=== PATIENT | female | born 1980 | race Asian ===

== ENCOUNTER 2016-04-25 07:40 | Outpatient (CLI) | payer OTHER ==
[2016-04-25 08:40] LABS: PLATELET COUNT 255 K/uL (152-353)
== END 2016-04-25 21:33 | disposition home or self-care (01) ==
LOC: LABW 07:40
PROVIDERS: Family Medicine
DX: R61 Generalized hyperhidrosis (principal); E78.4 Other hyperlipidemia; E55.9 Vitamin D deficiency, unspecified; E53.8 Deficiency of other specified B group vitamins; R53.83 Other fatigue; M54.5 Low back pain; M54.6 Pain in thoracic spine
CPT/HCPCS: 36415; 80061; 82306; 82607; 84443; 85027

== ENCOUNTER 2016-05-16 10:39 | Outpatient (CLI) | payer OTHER ==
[2016-05-16 10:58] LABS: PLATELET COUNT 242 K/uL (152-353)
[2016-05-16 11:24] LABS: POTASSIUM 3.6 mmol/L (3.6-5.2); SODIUM 135 mmol/L (136-145)
== END 2016-05-16 19:22 | disposition home or self-care (01) ==
LOC: LABW 10:39
PROVIDERS: Physician Assistant
DX: N39.0 Urinary tract infection, site not specified (principal); R63.5 Abnormal weight gain; R68.89 Other general symptoms and signs; R53.83 Other fatigue
CPT/HCPCS: 36415; 80053; 80061; 82607; 83036; 83735; 84439; 84443; 85027

== ENCOUNTER 2016-05-16 18:09 | Emergency (ER) | payer OTHER ==
[~2016-05-16] VITALS: Ht 167.6 cm; Wt 105.7 kg
[2016-05-16 19:17] LABS: PLATELET COUNT 270 K/uL (152-353)
[2016-05-16 19:19] LABS: POTASSIUM 3.7 mmol/L (3.6-5.2)
[2016-05-16 21:00] VITALS: BP 150/76; TEMP 98.9
== END 2016-05-16 21:00 | disposition home or self-care (01) ==
LOC: ED 18:09
PROVIDERS: Specialist
DX: R31.9 Hematuria, unspecified (principal)
CPT/HCPCS: 36415; 80048; 80053; 80061; 82607; 83036; 83735; 84439; 84443; 85027; 96361; 96374; 96375; 99284; J1885; J2550

== ENCOUNTER 2016-08-04 17:38 | Emergency (ER) | payer OTHER ==
[~2016-08-04] VITALS: Ht 167.6 cm; Wt 104.3 kg
[2016-08-04 18:41] LABS: POTASSIUM 3.6 mmol/L (3.6-5.2)
[2016-08-04 19:02] VITALS: BP 153/93; TEMP 98.5
== END 2016-08-04 19:15 | disposition home or self-care (01) ==
LOC: ED 17:38
DX: F15.93 Other stimulant use, unspecified with withdrawal (principal); T50.5X5A Adverse effect of appetite depressants, initial encounter
CPT/HCPCS: 36415; 80048; 99282

== ENCOUNTER 2016-09-06 10:17 | Emergency (ER) | payer OTHER ==
[~2016-09-06] VITALS: Ht 167.6 cm; Wt 104.8 kg
[2016-09-06 11:40] VITALS: BP 142/82; TEMP 98.3
== END 2016-09-06 11:45 | disposition home or self-care (01) ==
LOC: ED 10:17
DX: S39.012A Strain of muscle, fascia and tendon of lower back, initial encounter (principal); S29.012A Strain of muscle and tendon of back wall of thorax, initial encounter; X58.XXXA Exposure to other specified factors, initial encounter; Y93.F2 Activity, caregiving, lifting; Y92.128 Other place in nursing home as the place of occurrence of the external cause; Y99.0 Civilian activity done for income or pay
CPT/HCPCS: 96372; 99283; J1885

== ENCOUNTER 2017-07-14 12:02 | Outpatient (CLI) | payer OTHER | END 2017-07-14 22:50 | disposition home or self-care (01) | LOC: LAB 12:02 → US 12:02 → LAB 22:50 | DX: R10.2 Pelvic and perineal pain (principal) | CPT/HCPCS: 87077; 87086; 87088; 87185 ==

== ENCOUNTER 2018-11-18 16:22 | Emergency (ER) | payer OTHER ==
[~2018-11-18] VITALS: Ht 167.6 cm; Wt 101.2 kg
[2018-11-18 18:14] VITALS: BP 153/98; TEMP 99
== END 2018-11-18 18:14 | disposition home or self-care (01) ==
LOC: ED 16:22
DX: S61.551A Open bite of right wrist, initial encounter (principal); S51.851A Open bite of right forearm, initial encounter; W54.0XXA Bitten by dog, initial encounter
CPT/HCPCS: 90471; 90715; 96372; 99283; J0696

== ENCOUNTER 2019-04-20 09:10 | Outpatient (CLI) | payer OTHER | END 2019-04-20 19:24 | disposition home or self-care (01) | LOC: RESP 09:10 | DX: N85.2 Hypertrophy of uterus (principal); G56.01 Carpal tunnel syndrome, right upper limb; G56.21 Lesion of ulnar nerve, right upper limb | CPT/HCPCS: 95885; 95909 ==

== ENCOUNTER 2019-07-06 11:02 | Outpatient (CLI) | payer OTHER ==
[2019-07-06 11:20] LABS: PLATELET COUNT 216 K/uL (152-353)
== END 2019-07-06 22:26 | disposition home or self-care (01) ==
LOC: LAB 11:02
PROVIDERS: Family Medicine
DX: Z20.828 Contact with and (suspected) exposure to other viral communicable diseases (principal)
CPT/HCPCS: 36415; 85027

== ENCOUNTER 2019-10-20 08:45 | Emergency (ER) | payer OTHER ==
[~2019-10-20] VITALS: Ht 167.6 cm; Wt 102.1 kg
[2019-10-20 09:08] VITALS: TEMP 98.8
[2019-10-20 10:06] LABS: PLATELET COUNT 252 K/uL (152-353)
[2019-10-20 10:15] LABS: POTASSIUM 3.9 mmol/L (3.6-5.2); SODIUM 140 mmol/L (136-145)
[2019-10-20 12:40] VITALS: BP 143/86
== END 2019-10-20 12:40 | disposition home or self-care (01) ==
LOC: ED 08:45
PROVIDERS: Emergency Medicine
DX: I49.8 Other specified cardiac arrhythmias (principal); R07.89 Other chest pain; Z20.828 Contact with and (suspected) exposure to other viral communicable diseases
CPT/HCPCS: 80053; 82550; 82553; 83605; 84484; 85027; 85379; 87040; 87502; 87635; 87651; 93005; 99284; G2023; U00003

== ENCOUNTER 2020-04-02 13:47 | Emergency (ER) | payer OTHER ==
[~2020-04-02] VITALS: Ht 167.6 cm; Wt 105.7 kg
[2020-04-02 13:56] VITALS: TEMP 97.8
[2020-04-02 14:50] LABS: PLATELET COUNT 215 K/uL (152-353)
[2020-04-02 14:53] LABS: POTASSIUM 3.9 mmol/L (3.6-5.2)
[2020-04-02 15:46] VITALS: BP 128/72
== END 2020-04-02 15:47 | disposition home or self-care (01) ==
LOC: ED 13:47
PROVIDERS: Hospitalist
DX: J06.9 Acute upper respiratory infection, unspecified (principal); Z20.828 Contact with and (suspected) exposure to other viral communicable diseases
CPT/HCPCS: 80053; 85027; 87502; 87635; 87651; 93005; 99283; U0003

== ENCOUNTER 2020-06-16 12:39 | Emergency (ER) | payer OTHER ==
[~2020-06-16] VITALS: Ht 167.6 cm; Wt 105.7 kg
[2020-06-16 12:44] VITALS: TEMP 97.9
[2020-06-16 13:48] LABS: PLATELET COUNT 232 K/uL (152-353)
[2020-06-16 13:55] LABS: POTASSIUM 3.7 mmol/L (3.6-5.2); SODIUM 138 mmol/L (136-145)
[2020-06-16 14:12] LABS: PARTIAL THROMBOPLASTIN TIME 26.5 SECONDS (24.5-33.6)
[2020-06-16 16:11] VITALS: BP 144/82
== END 2020-06-16 16:12 | disposition home or self-care (01) ==
LOC: ED 12:39
PROVIDERS: Family Medicine
DX: G45.8 Other transient cerebral ischemic attacks and related syndromes (principal); I10 Essential (primary) hypertension; M79.18 Myalgia, other site
CPT/HCPCS: 80053; 81000; 84484; 85027; 85610; 85730; 92977; 93005; 96372; 99283; J2405

== ENCOUNTER 2020-06-18 22:23 | Emergency (ER) | payer OTHER ==
[~2020-06-18] VITALS: Ht 167.6 cm; Wt 106.6 kg
[2020-06-18 23:30] LABS: PLATELET COUNT 212 K/uL (152-353)
[2020-06-18 23:40] LABS: POTASSIUM 3.6 mmol/L (3.6-5.2); SODIUM 136 mmol/L (136-145)
[2020-06-19 00:27] LABS: PARTIAL THROMBOPLASTIN TIME 26.6 SECONDS (24.5-33.6)
[2020-06-19 00:53] VITALS: BP 135/80; TEMP 98.9
== END 2020-06-19 00:55 | disposition home or self-care (01) ==
LOC: ED 22:23
PROVIDERS: Hospitalist
DX: R07.89 Other chest pain (principal); K21.9 Gastro-esophageal reflux disease without esophagitis
CPT/HCPCS: 80053; 80320; 81000; 82550; 83880; 84484; 85027; 85379; 85610; 85730; 93005; 96374; 99284; J2405

== ENCOUNTER 2020-06-28 09:56 | Outpatient (CLI) | payer OTHER | END 2020-06-28 20:07 | disposition home or self-care (01) | LOC: RESP 09:56 | PROVIDERS: ATTEND Nurse Practitioner Family | DX: I10 Essential (primary) hypertension (principal); Z86.73 Personal history of transient ischemic attack (TIA), and cerebral infarction without residual deficits ==

== ENCOUNTER 2020-06-29 07:51 | Outpatient (CLI) | payer OTHER | END 2020-06-29 22:10 | disposition home or self-care (01) | LOC: NM 07:51 | PROVIDERS: ATTEND Nurse Practitioner Family | DX: I10 Essential (primary) hypertension (principal) | CPT/HCPCS: A9500 ==

== ENCOUNTER 2020-12-30 07:54 | Emergency (ER) | payer OTHER ==
[~2020-12-30] VITALS: Ht 167.6 cm; Wt 106.6 kg
[2020-12-30 09:11] LABS: PLATELET COUNT 241 K/uL (152-353)
[2020-12-30 09:16] LABS: POTASSIUM 3.3 mmol/L (3.6-5.2); SODIUM 137 mmol/L (136-145)
[2020-12-30 09:22] LABS: PARTIAL THROMBOPLASTIN TIME 30.1 SECONDS (24.5-33.6)
[2020-12-30 11:41] VITALS: BP 151/93; TEMP 98.1
== END 2020-12-30 11:42 | disposition home or self-care (01) ==
LOC: ED 07:54
PROVIDERS: Family Medicine
DX: M54.50 Low back pain, unspecified (principal); M79.18 Myalgia, other site; M62.830 Muscle spasm of back; X50.9XXA Other and unspecified overexertion or strenuous movements or postures, initial encounter; Y93.F2 Activity, caregiving, lifting; Y92.128 Other place in nursing home as the place of occurrence of the external cause
CPT/HCPCS: 80053; 80307; 81000; 82550; 84484; 85027; 85610; 85730; 93005; 96372; 99283; J1885

== ENCOUNTER 2021-07-10 15:12 | Emergency (ER) | payer OTHER ==
[~2021-07-10] VITALS: Ht 167.6 cm; Wt 106.6 kg
[2021-07-10 15:21] VITALS: BP 152/89; TEMP 97.8
== END 2021-07-10 16:59 | disposition home or self-care (01) ==
LOC: ED 15:12
DX: S00.83XA Contusion of other part of head, initial encounter (principal); Y04.8XXA Assault by other bodily force, initial encounter; Y92.098 Other place in other non-institutional residence as the place of occurrence of the external cause
CPT/HCPCS: 99283

== ENCOUNTER 2022-06-27 12:02 | Outpatient (CLI) | payer OTHER | END 2022-06-27 19:06 | disposition home or self-care (01) | LOC: MAMMO 12:02 | PROVIDERS: ATTEND Family Medicine | DX: Z12.31 Encounter for screening mammogram for malignant neoplasm of breast (principal) ==

== ENCOUNTER 2022-07-15 12:59 | Outpatient (CLI) | payer OTHER | END 2022-07-15 19:00 | disposition home or self-care (01) | LOC: US 12:59 | PROVIDERS: ATTEND Nurse Practitioner Primary Care | DX: N63.24 Unspecified lump in the left breast, lower inner quadrant (principal); N63.11 Unspecified lump in the right breast, upper outer quadrant ==

== ENCOUNTER 2022-09-19 19:29 | Emergency (ER) | payer OTHER ==
[~2022-09-19] VITALS: Ht 167.6 cm; Wt 108.9 kg
[2022-09-19 19:30] VITALS: BP 147/95; TEMP 97.3
[2022-09-19 20:15] LABS: PLATELET COUNT 248 K/uL (152-353)
[2022-09-19 20:23] LABS: POTASSIUM 3.7 mmol/L (3.6-5.2)
== END 2022-09-19 21:44 | disposition home or self-care (01) ==
LOC: ED 19:29
PROVIDERS: Family Medicine
DX: K21.9 Gastro-esophageal reflux disease without esophagitis (principal); R07.89 Other chest pain
CPT/HCPCS: 80053; 84484; 85027; 93005; 99284